=== PATIENT | female | born 1970 | race Caucasian/White ===

== ENCOUNTER 2018-07-23 10:11 | Emergency (ER) | payer OTHER ==
[2018-07-23] MEDS ORDERED: AMOXICILLIN TR/POT CLAVULANATE 500-125 MG TAB PO ONE (10:47)
[2018-07-23] MEDS ORDERED: DIPH/PERTUSS(ACELL)/TETANUS VAC/PF 0.5 ML SYR (>=10YO) IM ONE (10:47)
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
[2018-07-23 11:31] VITALS: BP 136/86
== END 2018-07-23 11:30 | disposition home or self-care (01) ==
LOC: ER 10:11
DX: S61.452A Open bite of left hand, initial encounter (principal); W55.01XA Bitten by cat, initial encounter; Y93.K9 Activity, other involving animal care; Y92.72 Chicken coop as the place of occurrence of the external cause; Z88.1 Allergy status to other antibiotic agents; Z88.4 Allergy status to anesthetic agent; Z91.013 Allergy to seafood
CPT/HCPCS: 90471; 90715; 99283

== ENCOUNTER 2018-07-27 09:34 | Day surgery (SDC) | payer OTHER ==
[~2018-07-27 09:34] MED LIST: BACITRACIN INJ 50,000 UNIT VIAL ONE; LIDOCAINE 1% INJ-PF (10 MG/ML) 30 ML SDV ONE
[2018-07-27 10:34] LABS: HEMATOCRIT 38.6 % (36.0-47.0); HEMOGLOBIN 13.4 g/dL (12.0-15.5); MEAN CORPUSCULAR HEMOGLOBIN 34.8 pg (27.0-33.4); MEAN CORPUSCULAR HGB CONC 34.7 g/dL (32.0-36.0); MEAN CORPUSCULAR VOLUME 100 fl (80-97); PLATELET COUNT 274 10^3/uL (150-450); RED BLOOD COUNT 3.86 10^6/uL (3.72-5.28); RED CELL DISTRIBUTION WIDTH 12.5 % (11.5-14.0); WHITE BLOOD COUNT 4.7 10^3/uL (4.0-10.5)
[2018-07-27 10:56] LABS: APPEARANCE,URINE SLIGHTLY-CLOUDY; BILIRUBIN,URINE NEGATIVE (NEGATIVE); COLOR,URINE YELLOW; GLUCOSE, URINE NEGATIVE (NEGATIVE); KETONES,URINE NEGATIVE (NEGATIVE); LEUKOCYTE ESTERASE,URINE TRACE (NEGATIVE); NITRITE,URINE NEGATIVE (NEGATIVE); PROTEIN,URINE NEGATIVE (NEGATIVE); URINE SPECIFIC GRAVITY 1.021
[2018-07-27 10:56] LABS: ANION GAP 7 (5-19); BLOOD UREA NITROGEN 9 mg/dL (7-20); CALCIUM 8.9 mg/dL (8.4-10.2); CARBON DIOXIDE 28 mmol/L (22-30); CHLORIDE 107 mmol/L (98-107); GLUCOSE 90 mg/dL (75-110); POTASSIUM 4.3 mmol/L (3.6-5.0); SODIUM 142.2 mmol/L (137-145)
[2018-07-27 11:31] LABS: ERYTHROCYTE SEDIMENTATION RATE 23 mm/hr (0-20)
[2018-07-27] MEDS ORDERED: MIDAZOLAM 2 MG/2 ML INJ ONE (11:47)
[2018-07-27] MEDS ORDERED: FENTANYL CITRATE INJ/PF 100 MCG/2 ML AMPUL ONE (11:47)
[2018-07-27] MEDS ORDERED: ONDANSETRON HCL INJ/PF 4 MG/2 ML SDV ONE (11:47)
[2018-07-27] MEDS ORDERED: PROPOFOL INJ 200 MG/20 ML VIAL IV ONE (11:48)
[2018-07-27] MEDS ORDERED: DIPHENHYDRAMINE HCL 50 MG/ML VIAL IV PRN (11:53)
[2018-07-27] MEDS ORDERED: MEPERIDINE HCL/PF INJ 25 MG/1 ML DISP.SYRIN IV PRN (11:53)
[2018-07-27] MEDS ORDERED: FENTANYL CITRATE INJ/PF 100 MCG/2 ML AMPUL IV PRN ×3 (11:53)
[2018-07-27] MEDS ORDERED: MORPHINE SULFATE 10 MG/ML INJ IV PRN ×2 (11:53→12:38)
[2018-07-27] MEDS ORDERED: PROMETHAZINE HCL INJ 25 MG/1 ML VIAL IV PRN (11:53)
[2018-07-27] MEDS ORDERED: CLINDAMYCIN 600 MG/D5W RTU 600 MG/50 ML RTUPB IV ONE (12:00)
[2018-07-27] MEDS ORDERED: HYDROCODONE/ACETAMINOPHEN 5-325 MG TABLET PO PRN (12:38)
[2018-07-27] MEDS ORDERED: ONDANSETRON HCL INJ/PF 4 MG/2 ML SDV IV PRN (12:38)
--- NOTE | 2018-07-27 12:38 | Discharge Summary ---
Discharge Summary (SDC) - Discharge Final Diagnosis: Cat Bite Left Hand Date of Surgery: 07/27/18 Discharge Date: 07/27/18 Condition: Good Treatment or Instructions: Schedule Follow Up w/ Dr. Anshul Morataya @ [facility] for Surgery to be seen in 10-14 days or as scheduled [place]: [place]: [place]: May remove dressing on postop day #3, keep incision covered and dry. Ice and elevate May begin finger range of motion attempting to make full fist. Stool softener of choice when on pain medication. USE OF LAJU-YUL-XUXNUQL IBUPROFEN: Ibuprofen (Advil, Nuprin, Medipren, Motrin IB) is a medication for fever and pain control. In addition, it has anti- inflammatory effects which may be beneficial, especially in the treatment of injuries. It's best to take ibuprofen with food. Persons with ulcer disease or allergy to aspirin should notify their physician of this before taking ibuprofen. Ibuprofen can be given every four to six hours, for a total of four doses daily. Age Pain or fever dose Antiinflammatory dose 6-8 yr 200 mg (1 tab) 200 mg (1 tab) 9-11 yr 200 mg (1 tab) 200-400 mg (1-2 tab) 11-14 yr 200-400 mg (1-2 tab) 400 mg (2 tab) 15-adult 400 mg (2 tab) 600 mg (3 tab) ORAL NARCOTIC MEDICATION: You have been given a prescription for pain control. This medication is a narcotic. It's best taken with food, as nausea can result if taken on an empty stomach. Don't operate machinery or drive within six hours of taking this medication. Do not combine this medicine with alcohol, or with any medication which can cause sedation (such as cold tablets or sleeping pills) unless you get permission from the physician. Narcotics tend to cause constipation. If possible, drink plenty of fluids and eat a diet high in fiber and fruits. Please be aware that prescription narcotics also have the potential for abuse. People become addicted to these medications because of the general sense of wellbeing that they induce. This feeling along with a significant reduction in tension, anxiety, and aggression provides a stimulating seductive quality to these drugs. Once your pain is under control, we encourage you to discard your unused narcotics. Prescriptions: Amox Tr/Potassium Clavulanate [Augmentin 875-125 mg Tablet] 1 tab PO BID #20 tablet Hydrocodone/Acetaminophen [[place] 5-325 mg Tablet] 1 tab PO Q6 PRN #25 tablet PRN Reason: Discharge Diet: As Tolerated Respiratory Treatments at Home: Deep Breathing/Coughing Discharge Activity: No Lifting Over 10 Pounds, No Lifting/Push/Pulling Report the Following to Your Physician Immediately: Fever over 101 Degrees, Unusual Bleeding, Redness, Swelling, Warmth, Increased Soreness
--- NOTE | 2018-07-27 12:39 | Operative Report ---
Operative Report DATE OF SURGERY: 07/27/18 PREOPERATIVE DIAGNOSIS: Cat Bite Left Hand POSTOPERATIVE DIAGNOSIS: Cat Bite Left Hand OPERATION: I&D Left Hand Index MCP Joint SURGEON: ROSANGELA WASHBURN ANESTHESIA: LMAC COMPLICATIONS: None ESTIMATED BLOOD LOSS: Minimal PROCEDURE: Indication for Above Procedure 47-year female presents today for evaluation of her left hand. She interval he sustained a cat bite to the index MCP joint. She was seen at the emergency room where she was started about the grade subsequently followed up at my office at which point she had seen improvement however given the location we discussed treatment options if she fails to see improvement over the weekend I would recommend proceeding with operative intervention. Risks and benefits were explained patient verbalized understanding consented for the procedure. Procedure In Detail: Patient was seen and evaluated in the preoperative holding area. The LEFT upper extremity was initialized and marked. Patient received clindamycin IV after cultures obtained. Patient was taken back to the operative room where transferred to the operative table. Once they were adequately anesthetized a nonsterile tourniquet was placed on the upper extremity. A surgical team debriefing was performed ensuring all instrumentation was available, the surgical procedure was discussed with possible concerns reviewed. A digital block was performed utilizing 10 mL of 1% lidocaine without epinephrine. The upper extremity was prepped with chlorhexidine and alcohol and draped in a sterile fashion. A timeout was done identifying correct patient, procedure and extremity everyone in attendance agree with this and verbalized no concerns. The extremity was elevated the tourniquet was inflated to 250 mmHg. Longitudinal skin incision over the index MCP joint. Blunt dissection was performed. Defect within the fascia of the first dorsal interossei was identified. There is no evidence of purulent drainage.. Capsulotomy was made no significant fluid or purulence was identified within the MCP joint. Aerobic and anaerobic cultures were obtained. The wound was copiously irrigated with normal saline. Skin incision was closed with interrupted 4-0 nylon sutures and a soft dressing placed. Sponge counts, instrument counts, needle counts were correct. Patient was then awoken from anesthesia. Transferred from the operating room table to the operating room stretcher. There was no intraoperative complications patient tolerated procedure well stable to PACU. Postoperative plan: Patient will follow-up as scheduled for wound check. They will call with any questions or concerns.
[2018-07-27 14:19] VITALS: BP 112/70
== END 2018-07-27 14:22 | disposition home or self-care (01) ==
LOC: OROUT 09:34
PROVIDERS: ATTEND Orthopaedic Surgery
DX: L03.012 Cellulitis of left finger (principal); A28.0 Pasteurellosis; W55.01XA Bitten by cat, initial encounter; M79.642 Pain in left hand
CPT/HCPCS: 36415; 87070; 87205; 85027; 85652; 81025; 87075; 86140; 87077; 80048; 81001; 26075; J2250; J3010; J3490; J2405; J2704; 1810

== ENCOUNTER 2019-02-14 11:27 | Emergency (ER) | payer OTHER ==
[2019-02-14 11:35] VITALS: BP 121/87
--- NOTE | 2019-02-14 12:01 | ER Document Report ---
ED Animal Bite - General Chief Complaint: Cat Bite Stated Complaint: CAT BITE/BACK OF RIGHT HAND Time Seen by Provider: 02/14/19 11:43 Notes: 48-year-old female presents the emergency department for cat bite on the dorsal aspect of her right hand. Patient states this is not the same Cat that bit her in June but it is from the same letter. Patient states that the cat is vaccinated and she has no concern as far as rabies status. Patient did receive a tetanus booster when she was here in June. Patient states that the bite occurred yesterday, was bitten twice, one on the dorsal aspect mid hand and another just over the fourth knuckle. Patient states that within 24 hours it has started to swell and become red. Patient denies fever or chills, denies nausea or vomiting, is able to make a fist and has normal neurovascular status. TRAVEL OUTSIDE OF THE [place] IN LAST 30 DAYS: No - Related Data Allergies/Adverse Reactions: erythromycin base Allergy (Verified 07/23/18 10:15) lidocaine Allergy (Verified 07/23/18 10:15) shellfish derived Allergy (Verified 07/23/18 10:41) Past Medical History - Social History Smoking Status: Unknown if Ever Smoked Family History: None - Past Medical History Cardiac Medical History: Denies: Hx Coronary Artery Disease, Hx Heart Attack, Hx Hypertension Pulmonary Medical History: Denies: Hx Asthma, Hx Bronchitis, Hx COPD, Hx Pneumonia Neurological Medical History: Denies: Hx Cerebrovascular Accident, Hx Seizures Renal/ Medical History: Denies: Hx Peritoneal Dialysis Musculoskeletal Medical History: Denies Hx Arthritis Past Surgical History: Reports: Hx Section, Hx Tonsillectomy - Immunizations Hx Diphtheria, Pertussis, Tetanus Vaccination: Yes Review of Systems - Review of Systems Constitutional: See HPI Gastrointestinal: See HPI Musculoskeletal: See HPI Skin: See HPI Physical Exam - Vital signs Vitals: Temp Pulse Resp BP Pulse Ox 98.1 F 100 16 121/87 H 98 02/14/19 11:34 02/14/19 11:34 02/14/19 11:34 02/14/19 11:34 02/14/19 11:34 - Notes Notes: PHYSICAL EXAMINATION: Reviewed vital signs and charting by RN GENERAL: Alert, interacts well. No acute distress. HEAD: Normocephalic, atraumatic. EYES: Pupils equal and round. Extraocular movements intact. ENT: Oral mucosa moist, tongue midline. NECK: Full range of motion. Trachea midline. EXTREMITIES: Moves all 4 extremities spontaneously. Edema of the dorsal aspect of the right hand with surrounding erythema, 2 small healed puncture type wounds. PSYCH: Normal affect, normal mood. SKIN: Warm, dry, normal turgor. No rashes or lesions noted. Course - Re-evaluation Re-evalutation: 02/14/19 11:58 Patient is well-appearing and nontoxic. Patient returns for a similar presentation from June 2018 but states is not as severe as her previous visit. Tetanus status is up-to-date. No evidence of an infectious tenosynovitis at this time as patient can fully flex and extend her digits. This is a high risk bite and I have discussed with the patient we do not have orthopedics but I will still give her information for Dr. Gabriel since she has established a relationship with him. I told her that regardless she needs a 24- hour wound check whether in the emergency department or with him. Plan is to give her Augmentin, first dose here, and put her on a 7-day course. Patient understands all instructions and stable for discharge. - Vital Signs Vital signs: Temp Pulse Resp BP Pulse Ox 98.1 F 100 16 121/87 H 98 02/14/19 11:34 02/14/19 11:34 02/14/19 11:34 02/14/19 11:34 02/14/19 11:34 Discharge - Discharge Clinical Impression: Cat bite Qualifiers: Encounter type: initial encounter Qualified Code(s): W55.01XA - Bitten by cat, initial encounter Cellulitis Qualifiers: Site of cellulitis: extremity Site of cellulitis of extremity: upper extremity Laterality: right Qualified Code(s): L03.113 - Cellulitis of right upper limb Condition: Good Disposition: HOME, SELF-CARE Additional Instructions: Please monitor very closely for any worsening signs of infection from your cat bite including spreading redness from the area, pus from the wound, or worsening pain. Clean the area twice daily with soap and water and then apply topical antibiotic ointment. Please take all the antibiotics that you were prescribed until they are gone. Follow-up with the hand specialist tomorrow. Regardless, you NEED A 24 HOUR WOUND RECHECK EITHER FROM THE EMERGENCY DEPARTMENT OR FROM THE HAND SURGEON, WHICHEVER YOU CAN SEE FIRST. If your symptoms continue to worsen before then as above please return to the emergency department as this may require transfer to a tertiary center for more urgent care from a hand surgeon Prescriptions: Amox Tr/Potassium Clavulanate [Augmentin 875-125 Tablet] 1 tab PO BID 10 Days tablet
[2019-02-14] MEDS ORDERED: AMOXICILLIN TR/POT CLAVULANATE 500-125 MG TAB PO ONE (12:06)
== END 2019-02-14 12:24 | disposition home or self-care (01) ==
LOC: ER 11:27
DX: L03.113 Cellulitis of right upper limb (principal); W55.01XA Bitten by cat, initial encounter
CPT/HCPCS: 99283

== ENCOUNTER 2019-02-15 10:39 | Emergency (ER) | payer OTHER ==
[2019-02-15 10:47] VITALS: BP 110/74
--- NOTE | 2019-02-15 11:24 | ER Document Report ---
HPI - HPI Patient complains to provider of: cat bite recheck Time Seen by Provider: 02/15/19 11:05 Onset: Other - friday Quality of pain: Achy Pain Level: 1 Context: This 48-year-old female presents emergency department with recheck for cat bite that happened on Friday. Patient was evaluated and treated with Augmentin on Friday here at the emergency department. She presents today for recheck. Reports area is hydrate control tender but feeling better. Denies fever. PCT Weston and RN Lacey took care of patient yesterday and reports the site looks better. Associated Symptoms: None Exacerbated by: Denies Relieved by: Denies Similar symptoms previously: Yes Recently seen / treated by doctor: Yes - REPRODUCTIVE Reproductive: DENIES: : Past Medical History - General Information source: Patient - Social History Smoking Status: Unknown if Ever Smoked Frequency of alcohol use: None Drug Abuse: None Lives with: Family Family History: None Patient has suicidal ideation: No Patient has homicidal ideation: No - Past Medical History Cardiac Medical History: Denies: Hx Coronary Artery Disease, Hx Heart Attack, Hx Hypertension Pulmonary Medical History: Denies: Hx Asthma, Hx Bronchitis, Hx COPD, Hx Pneumonia Neurological Medical History: Denies: Hx Cerebrovascular Accident, Hx Seizures Renal/ Medical History: Denies: Hx Peritoneal Dialysis Musculoskeletal Medical History: Denies Hx Arthritis Past Surgical History: Reports: Hx Section, Hx Tonsillectomy - Immunizations Hx Diphtheria, Pertussis, Tetanus Vaccination: Yes Vertical Provider Document - CONSTITUTIONAL Agree With Documented VS: Yes Exam Limitations: No Limitations General Appearance: WD/WN, No Apparent Distress - INFECTION CONTROL TRAVEL OUTSIDE OF THE [place] IN LAST 30 DAYS: No - HEENT HEENT: Atraumatic, Normocephalic - NECK Neck: Supple - RESPIRATORY Respiratory: No Respiratory Distress - CARDIOVASCULAR Cardiovascular: Regular Rate - MUSCULOSKELETAL/EXTREMETIES Musculoskeletal/Extremeties: MAEW, FROM, Tender - NEURO Level of Consciousness: Awake, Alert, Appropriate Motor/Sensory: No Motor Deficit - DERM Integumentary: Warm, Dry Adult Front & Back Diagram: 1 - 2 small bite puncture courtney noted to dorsal hand with slight erythema. Course - Re-evaluation Re-evalutation: 02/15/19 11:23 48-year-old female presents emergency department with request for Eye recheck. She reports she did attempt to call her orthopedics for an appointment but was on hold for so long she hung up and came here. Reports sites feels better. Denies fever. Patient is taking her antibiotics as prescribed. She was instructed to continue to monitor her hand and return the emergency department if the site starts having more increased erythema increased warmth. She verbalized understanding all instructions Dictation of this chart was performed using voice recognition software; therefore, there may be some unintended grammatical errors. - Vital Signs Vital signs: Temp Pulse Resp BP Pulse Ox 98.1 F 85 16 110/74 94 02/15/19 10:45 02/15/19 10:45 02/15/19 10:45 02/15/19 10:45 02/15/19 10:45 Discharge - Discharge Clinical Impression: cat bite recheck Condition: Stable Disposition: HOME, SELF-CARE Additional Instructions: *You have been treated for a cat bite recheck *Take your medication as prescribed *Monitor the site for signs of increasing infection such as increasing pain, redness, swelling, warmth *Wear gloves when handling the kittens *Follow up with a primary care provider within one week as indicated *Return to ED for signs of increasing infection, worsening condition, changes, needs
== END 2019-02-15 11:58 | disposition home or self-care (01) ==
LOC: ER 10:39
DX: S61.451A Open bite of right hand, initial encounter (principal); W55.01XA Bitten by cat, initial encounter
CPT/HCPCS: 99282